=== PATIENT | female | born 1980 | race Caucasian/White ===

== ENCOUNTER 2017-08-29 23:48 | Emergency (ER) | payer SELFPAY ==
[~2017-08-29] VITALS: Ht 175.3 cm; Wt 80.0 kg
[2017-08-30] MEDS ORDERED: ALBUTEROL (0.083%) 2.5MG/3ML NEB HHN STA (06:55)
[2017-08-30] MEDS ORDERED: ALBUTEROL (0.5%) 2.5MG/0.5ML NEB HHN ONE (07:30)
[2017-08-30 08:39] VITALS: BP 143/96
== END 2017-08-30 08:44 | disposition home or self-care (01) ==
LOC: ER 23:48
DX: J40 Bronchitis, not specified as acute or chronic (principal); F41.9 Anxiety disorder, unspecified; F17.200 Nicotine dependence, unspecified, uncomplicated; I10 Essential (primary) hypertension; F31.9 Bipolar disorder, unspecified
CPT/HCPCS: 94640; 99283; J7611; Z7610

== ENCOUNTER 2019-01-05 08:39 | Emergency (ER) | payer SELFPAY ==
[~2019-01-05] VITALS: Ht 165.1 cm; Wt 100.0 kg
[2019-01-05 10:44] LABS: BASOPHILS % 0.5 % (0.0-2.0); EOSINOPHILS % 0.5 % (0.0-5.0); HEMATOCRIT. 43.1 % (36.0-48.0); HEMOGLOBIN. 13.8 g/dL (12.0-16.0); LYMPHOCYTES % 16.9 % (20.0-50.0); MEAN CORPUSCULAR HEMOGLOBIN 27.3 pg (28.0-32.0); MEAN CORPUSCULAR VOLUME 84.9 fL (81.0-99.0); MEAN PLATELET VOLUME 8.6 fl (7.4-10.4); MONOCYTES % 6.1 % (2.0-8.0); PLATELET 247 x1000/uL (130-400); RED BLOOD CELL COUNT 5.07 mill/uL (4.2-5.4); RED CELL DISTRIBUTION WIDTH 16.3 % (11.6-14.6)
[2019-01-05 10:47] LABS: CHLORIDE 104 mEq/L (98-107)
[2019-01-05 10:50] LABS: ETHANOL BLOOD < 10 mg/dL
[2019-01-05 13:41] VITALS: BP 151/81
== END 2019-01-05 13:52 | disposition home or self-care (01) ==
LOC: ER 08:39
DX: R40.4 Transient alteration of awareness (principal); R55 Syncope and collapse; I10 Essential (primary) hypertension; F32.9 Major depressive disorder, single episode, unspecified
CPT/HCPCS: 36415; 71045; 80307; 80320; 80329; 82962; 93005; 99284; G0480

== ENCOUNTER 2019-06-10 13:10 | Emergency (ER) | payer MEDICAID, OTHER ==
[~2019-06-10] VITALS: Ht 170.2 cm; Wt 64.0 kg
[2019-06-10 17:57] LABS: BASOPHILS % 0.7 % (0.0-2.0); EOSINOPHILS % 0.7 % (0.0-5.0); HEMATOCRIT. 45.6 % (36.0-48.0); HEMOGLOBIN. 15.1 g/dL (12.0-16.0); LYMPHOCYTES % 18.8 % (20.0-50.0); MEAN CORPUSCULAR VOLUME 81.8 fL (81.0-99.0); MEAN PLATELET VOLUME 7.5 fl (7.4-10.4); MONOCYTES % 7.4 % (2.0-8.0); NEUTROPHILS % 72.4 % (40.0-76.0); PLATELET 258 x1000/uL (130-400); RED BLOOD CELL COUNT 5.58 mill/uL (4.2-5.4); RED CELL DISTRIBUTION WIDTH 17.8 % (11.6-14.6)
[2019-06-10 18:03] LABS: CHLORIDE 106 mEq/L (98-107)
[2019-06-10 18:07] LABS: HCG SCREEN NEGATIVE
[2019-06-10 18:08] LABS: ETHANOL BLOOD < 10 mg/dL
[2019-06-10] MEDS ORDERED: POTASSIUM CHLORIDE 20MEQ TABLET SR PO ONE (18:15)
[2019-06-10] MEDS ORDERED: OLANZAPINE 5MG TABLET ODT PO ONE (18:15)
[2019-06-10 18:50] LABS: CLARITY URINE CLOUDY (CLEAR); COLOR URINE DARK YELLOW (YELLOW); KETONES URINE 4+ (NEGATIVE); LEUKOCYTE ESTERASE URINE 1+ (NEGATIVE); NITRITE URINE NEGATIVE (NEGATIVE); OCCULT BLOOD URINE NEGATIVE (NEGATIVE); PH URINE 5.5 (4.5-8.0); PROTEIN URINE 1+ (NEGATIVE); SPECIFIC GRAVITY URINE 1.031 (1.005-1.030)
[2019-06-10 19:20] LABS: *AMPHETAMINES SCREEN URINE NEGATIVE (NEGATIVE); *BARBITURATES SCREEN URINE NEGATIVE (NEGATIVE); *BENZODIAZEPINES SCREEN URINE NEGATIVE (NEGATIVE); *COCAINE SCREEN URINE NEGATIVE (NEGATIVE); METHADONE URINE SCREEN NEGATIVE (NEGATIVE)
[2019-06-10 19:21] LABS: CANNABINOID URINE SCREEN NEGATIVE (NEGATIVE); OPIATES URINE SCREEN NEGATIVE (NEGATIVE); PHENCYCLIDINE URINE SCREEN NEGATIVE (NEGATIVE)
[2019-06-12 10:16] VITALS: BP 124/90
== END 2019-06-12 12:38 | disposition home or self-care (01) ==
LOC: ER 13:59
DX: F31.9 Bipolar disorder, unspecified (principal); R45.851 Suicidal ideations; Z13.39 Encounter for screening examination for other mental health and behavioral disorders
CPT/HCPCS: 36415; 80305; 80307; 80320; 80329; 81003; 81025; 84703; 99284; G0480

== ENCOUNTER 2019-10-22 21:10 | Emergency (ER) | payer MEDICARE, OTHER ==
[~2019-10-22] VITALS: Ht 175.3 cm; Wt 68.0 kg
[2019-10-23 00:39] LABS: BASOPHILS % 1.3 % (0.0-2.0); EOSINOPHILS % 1.5 % (0.0-5.0); HEMATOCRIT. 43.5 % (36.0-48.0); HEMOGLOBIN. 14.4 g/dL (12.0-16.0); MEAN CORPUSCULAR HEMOGLOBIN 27.8 pg (28.0-32.0); MEAN CORPUSCULAR VOLUME 84.1 fL (81.0-99.0); MEAN PLATELET VOLUME 7.5 fl (7.4-10.4); MONOCYTES % 7.3 % (2.0-8.0); NEUTROPHILS % 38.9 % (40.0-76.0); PLATELET 325 x1000/uL (130-400); RED BLOOD CELL COUNT 5.17 mill/uL (4.2-5.4)
[2019-10-23 00:51] LABS: CHLORIDE 103 mEq/L (98-107)
[2019-10-23 01:50] LABS: ETHANOL BLOOD 327 mg/dL
[2019-10-23 08:28] VITALS: BP 108/67
== END 2019-10-23 10:22 | disposition home or self-care (01) ==
LOC: ER 21:10
DX: F10.129 Alcohol abuse with intoxication, unspecified (principal); F12.10 Cannabis abuse, uncomplicated; Y90.8 Blood alcohol level of 240 mg/100 ml or more; M79.672 Pain in left foot; M79.671 Pain in right foot; E11.9 Type 2 diabetes mellitus without complications; Z59.0 Homelessness; Z79.4 Long term (current) use of insulin
CPT/HCPCS: 36415; 80053; 80307; 80320; 80329; 85025; 99285; G0480

== ENCOUNTER 2021-10-15 06:33 | Emergency (ER) | payer MEDICARE, OTHER ==
[~2021-10-15] VITALS: Ht 170.2 cm; Wt 74.0 kg
[2021-10-15] MEDS ORDERED: OLANZAPINE 10 MG/VIAL IM ONE (07:15)
[2021-10-15 07:49] LABS: BASOPHILS % 0.8 % (0.0-2.0); EOSINOPHILS % 0.4 % (0.0-5.0); HEMATOCRIT. 47.6 % (36.0-48.0); HEMOGLOBIN. 15.4 g/dL (12.0-16.0); LYMPHOCYTES % 35.4 % (20.0-50.0); MEAN CORPUSCULAR HEMOGLOBIN 26.9 pg (28.0-32.0); MEAN CORPUSCULAR VOLUME 82.8 fL (81.0-99.0); MEAN PLATELET VOLUME 7.5 fl (7.4-10.4); NEUTROPHILS % 57.4 % (40.0-76.0); PLATELET 295 x1000/uL (130-400); RED BLOOD CELL COUNT 5.74 mill/uL (4.2-5.4); RED CELL DISTRIBUTION WIDTH 16.7 % (11.6-14.6)
[2021-10-15 07:54] LABS: CHLORIDE 108 mEq/L (98-107)
[2021-10-15 07:57] LABS: ETHANOL BLOOD 205 mg/dL
[2021-10-15 10:40] LABS: HCG SCREEN NEGATIVE
[2021-10-15] MEDS ORDERED: ARIPIPRAZOLE 5MG TABLET PO SCH (12:00)
[2021-10-15] MEDS ORDERED: DIVALPROEX SODIUM 500MG ER TABLET PO SCH (12:30)
[2021-10-15 12:39] LABS: CLARITY URINE CLEAR (CLEAR); COLOR URINE YELLOW (YELLOW); KETONES URINE NEGATIVE (NEGATIVE); LEUKOCYTE ESTERASE URINE 1+ (NEGATIVE); NITRITE URINE NEGATIVE (NEGATIVE); OCCULT BLOOD URINE NEGATIVE (NEGATIVE); PH URINE 6.5 (4.5-8.0); PROTEIN URINE NEGATIVE (NEGATIVE); SPECIFIC GRAVITY URINE 1.009 (1.005-1.030)
[2021-10-15 12:59] LABS: *BARBITURATES SCREEN URINE NEGATIVE (NEGATIVE); *BENZODIAZEPINES SCREEN URINE NEGATIVE (NEGATIVE); *COCAINE SCREEN URINE NEGATIVE (NEGATIVE); METHADONE URINE SCREEN NEGATIVE (NEGATIVE); OPIATES URINE SCREEN NEGATIVE (NEGATIVE)
[2021-10-15 13:00] LABS: *AMPHETAMINES SCREEN URINE NEGATIVE (NEGATIVE); CANNABINOID URINE SCREEN NEGATIVE (NEGATIVE)
[2021-10-15 13:06] LABS: PHENCYCLIDINE URINE SCREEN PRESUMTIVE POSITIVE (NEGATIVE)
[2021-10-15 17:00] VITALS: BP 145/87
== END 2021-10-15 17:25 | disposition home or self-care (01) ==
LOC: ER 06:33
DX: R46.2 Strange and inexplicable behavior (principal); Z20.822 Contact with and (suspected) exposure to COVID-19; Y90.7 Blood alcohol level of 200-239 mg/100 ml
CPT/HCPCS: 36415; 80053; 80305; 80320; 81003; 84703; 85025; 87426; 96372; 99291; J3490; A4315; G0480

== ENCOUNTER 2021-10-28 07:13 | Emergency (ER) | payer MEDICARE, OTHER ==
[~2021-10-28] VITALS: Ht 175.3 cm; Wt 63.0 kg
[2021-10-28 07:22] VITALS: BP 142/88
== END 2021-10-28 08:40 | disposition left against medical advice (07) ==
LOC: ER 07:25
DX: Z53.21 Procedure and treatment not carried out due to patient leaving prior to being seen by health care provider (principal)

== ENCOUNTER 2022-10-14 18:49 | Emergency (ER) | payer MEDICARE, OTHER ==
[~2022-10-14] VITALS: Ht 175.3 cm; Wt 100.0 kg
[2022-10-14 18:54] VITALS: BP 148/98
== END 2022-10-14 19:19 | disposition left against medical advice (07) ==
LOC: ER 18:49
DX: Z53.21 Procedure and treatment not carried out due to patient leaving prior to being seen by health care provider (principal)

== ENCOUNTER 2022-12-15 23:13 | Emergency (ER) | payer MEDICARE, MEDICAID ==
[~2022-12-15] VITALS: Ht 175.3 cm; Wt 77.0 kg
[2022-12-15] MEDS ORDERED: BACITRACIN 15GM TUBE TOP NR (23:45)
[2022-12-16 00:05] LABS: BASOPHILS % 1.1 % (0.0-2.0); EOSINOPHILS % 0.7 % (0.0-5.0); HEMATOCRIT. 39.7 % (36.0-48.0); HEMOGLOBIN. 13.3 g/dL (12.0-16.0); LYMPHOCYTES % 22.1 % (20.0-50.0); MEAN CORPUSCULAR HEMOGLOBIN 28.2 pg (28.0-32.0); MEAN CORPUSCULAR VOLUME 84.3 fL (81.0-99.0); MEAN PLATELET VOLUME 7.2 fl (7.4-10.4); MONOCYTES % 10.9 % (2.0-8.0); NEUTROPHILS % 65.2 % (40.0-76.0); PLATELET 279 x1000/uL (130-400); RED BLOOD CELL COUNT 4.71 mill/uL (4.2-5.4); RED CELL DISTRIBUTION WIDTH 16.1 % (11.6-14.6)
[2022-12-16 00:12] LABS: CHLORIDE 102 mEq/L (98-107)
[2022-12-16] MEDS ORDERED: TETANUS, DIPHTHERIA, PERTUSSIS VAC/PF 0.5ML (>10YR OLD) IM ONE (00:30)
[2022-12-16] MEDS ORDERED: POTASSIUM CHLORIDE 20MEQ TABLET SR PO NR (01:00)
[2022-12-16 02:30] VITALS: BP 144/90
[2022-12-16] MEDS ORDERED: CEPH500C2 MT (03:04)
[2022-12-16] MEDS ORDERED: CEPHALEXIN 250MG CAPSULE PO ONE (03:15)
== END 2022-12-16 04:09 | disposition home or self-care (01) ==
LOC: ER 23:13
DX: S01.80XA Unspecified open wound of other part of head, initial encounter (principal); Z98.51 Tubal ligation status; W20.8XXA Other cause of strike by thrown, projected or falling object, initial encounter; Y93.89 Activity, other specified; Y92.89 Other specified places as the place of occurrence of the external cause; Y99.8 Other external cause status
CPT/HCPCS: 36415; 70486; 80053; 81025; 85025; 90471; 90715; 99285